=== PATIENT | male | born 1950 | race Caucasian/White ===

== ENCOUNTER 2016-09-15 19:33 | Observation (INO) | payer OTHER ==
[~2016-09-15] VITALS: Ht 172.7 cm; Wt 81.5 kg
[~2016-09-15 19:33] MED LIST: ADVIL,NUPRIN,M200 MG PO; ASPIR 8181 M1 PO; COLACE100 MG PO; LOVASTATIN20 MG PO; MEDROL DOSEPAK4 MG PO; NOHOMEMEDS; OMEPRAZOLE40 M1 PO; PANTOPRAZOLE SO40 MG PO; PERCOCET 5/31 TABLET PO; PRILOSEC20 MG PO; PriLOSEC PO; SKELAXIN800 MG PO; prilosec
[2016-09-15 20:39] LABS: CHLORIDE 106 mEq/L (99-109); POTASSIUM 3.6 mEq/L (3.7-5.4); SODIUM 140 mEq/L (136-147)
[2016-09-15 20:41] LABS: GLUCOSE 118 mg/dL (70-99)
[2016-09-15 20:42] LABS: ANION GAP 14 MEQ/L (2-14)
[2016-09-15 20:43] LABS: TOTAL BILIRUBIN 0.8 mg/dL (0.0-1.0)
[2016-09-15 20:44] LABS: ALKALINE PHOSPHATASE 69 IU/L (3-129)
[2016-09-15 20:45] LABS: GFR ESTIMATE (CALCULATED) > 59 mL/min/
[2016-09-15 20:47] LABS: D-DIMER ELISA 0.64 mg/L FEU (< 0.57)
[2016-09-15 20:51] LABS: TROP-I INTERPRETATION NEGATIVE; TROPONIN-I < 0.01 ng/mL (0.0-0.30)
[2016-09-15 20:58] LABS: BASOPHIL COUNT 0.1 K/uL (0-0.1); EOSINOPHIL (%) 1.4 % (0-5); EOSINOPHIL COUNT 0.2 K/uL (0-0.3); HEMATOCRIT 53.6 % (38.0-50.0); IMMATURE GRANULOCYTE (%) 0.3 % (0.0-0.7); INSTRUMENT ABS NEUTROPHIL CT 8.7 K/uL; LYMPHOCYTE COUNT 1.7 K/uL (1.0-2.8); MCHC 34.5 G/DL (30.0-36.0); MCV 81.1 FL (86-99); MEAN PLAT.VOLUME 9.8 uM^3 (9.0-12.4); MONOCYTE (%) 9.1 % (3-12); MONOCYTE COUNT 1.1 K/uL (0-0.8); NEUTROPHIL (%) 74.4 % (45-76); NEUTROPHIL COUNT 8.7 K/uL (1.8-6.4); PLATELET COUNT 227 K/uL (156-360); RBC DIS.WIDTH-CV 13.2 % (11.8-14.6); RBC DIS.WIDTH-SD 37.9 % (39-53); RED BLOOD COUNT 6.61 M/uL (4.00-5.50)
[2016-09-15 21:14] LABS: WHITE BLOOD COUNT 11.7 K/uL (4.1-10.2)
[2016-09-15 21:32] LABS: UREA NITROGEN (BUN) 20 mg/dL (9-23)
[2016-09-15 21:42] LABS: ADD MIUA? NO; BILIRUBIN NEGATIVE; BLOOD NEGATIVE; COLOR YELLOW ((YELLOW)); GLUCOSE (STRIP) NEGATIVE; KETONES 80; LEUKOCYTES NEGATIVE; NITRITE NEGATIVE; PROTEIN (STRIP) 30; SPECIFIC GRAVITY 1.027 (1.000-1.030); UCUL ADDED? NO
[2016-09-15 22:01] LABS: INFLUENZA A VIRAL ANTIGEN NEGATIVE; INFLUENZA B VIRAL ANTIGEN NEGATIVE
[2016-09-15] MEDS ORDERED: GABAPENTIN600 MG PO (22:52)
[2016-09-15 23:17] VITALS: BP 156/94
[2016-09-16 04:00] VITALS: BP 118/80
[2016-09-16 07:17] VITALS: BP 133/82
[2016-09-16 09:28] LABS: HEMATOCRIT 49.4 % (38.0-50.0); MCH 27.8 PG (29.0-34.0); MCHC 33.4 G/DL (30.0-36.0); MCV 83.3 FL (86-99); MEAN PLAT.VOLUME 9.6 uM^3 (9.0-12.4); PLATELET COUNT 199 K/uL (156-360); RBC DIS.WIDTH-CV 13.1 % (11.8-14.6); RBC DIS.WIDTH-SD 40.3 % (39-53); RED BLOOD COUNT 5.93 M/uL (4.00-5.50)
[2016-09-16 09:32] LABS: WHITE BLOOD COUNT 7.1 K/uL (4.1-10.2)
[2016-09-16 09:46] LABS: ANION GAP 10 MEQ/L (2-14); CHLORIDE 108 MEQ/L (99-109); GFR ESTIMATE (CALCULATED) > 59 mL/min/; GLUCOSE 118 mg/dL (70-99); POTASSIUM 4.3 MEQ/L (3.7-5.4); SAMPLE HEMOLYSIS CHECK 0; SAMPLE ICTERIC CHECK 0; SAMPLE LIPEMIA CHECK 0; SODIUM 143 MEQ/L (136-147); UREA NITROGEN (BUN) 20 mg/dL (9-23)
[2016-09-16] MEDS ORDERED: GUAIFENESIN WI120 M1 PO (10:00)
[2016-09-16] MEDS ORDERED: SPIRIVA RESPIMAT4 GM IH (10:00)
[2016-09-16] MEDS ORDERED: ZITHROMAX TRI-500 MG PO (10:00)
[2016-09-16] MEDS ORDERED: ADVAIR HFA120 INHALA IH (10:00)
[2016-09-16] MEDS ORDERED: VENTOLIN HFA18 GM IH (10:00)
[2016-09-16] MEDS ORDERED: PREDNISONE20 MG PO (10:00)
[2016-09-16 11:34] VITALS: BP 133/86
== END 2016-09-16 12:54 | disposition home or self-care (01) ==
LOC: EME 19:33 → EDOF 22:06 → 5WEST 22:06 → EDOF 22:58 → 5WEST 23:05
PROVIDERS: Emergency Medicine; Hospitalist
DX: J44.1 Chronic obstructive pulmonary disease with (acute) exacerbation (principal); J44.0 Chronic obstructive pulmonary disease with (acute) lower respiratory infection; J20.9 Acute bronchitis, unspecified; J45.901 Unspecified asthma with (acute) exacerbation; Z87.891 Personal history of nicotine dependence; K21.9 Gastro-esophageal reflux disease without esophagitis; G43.909 Migraine, unspecified, not intractable, without status migrainosus; F12.90 Cannabis use, unspecified, uncomplicated
CPT/HCPCS: 71020; 71250; 78582; 80048; 80053; 81003; 84484; 85025; 85027; 85379; 87502; 93005; 94640; 94640 76; 99202; 99281; 99285; A9540; A9567; G0378; J1650; J1885; J3010; J3480; J7030; J7512

== ENCOUNTER 2016-11-08 10:20 | Emergency (ER) | payer OTHER ==
[~2016-11-08] VITALS: Ht 172.7 cm; Wt 80.8 kg
[~2016-11-08 10:20] MED LIST changes: +ADVAIR HFA120 INHALA IH; +GABAPENTIN600 MG PO; +GUAIFENESIN WI120 M1 PO; +PREDNISONE20 MG PO; +SPIRIVA RESPIMAT4 GM IH; +VENTOLIN HFA18 GM IH; +ZITHROMAX TRI-500 MG PO
[2016-11-08 10:59] LABS: MCH 27.9 PG (29.0-34.0); MCHC 34.2 G/DL (30.0-36.0); MCV 81.6 FL (86-99); MEAN PLAT.VOLUME 9.8 uM^3 (9.0-12.4); PLATELET COUNT 202 K/uL (156-360); RBC DIS.WIDTH-CV 13.6 % (11.8-14.6); RBC DIS.WIDTH-SD 39.8 % (39-53); RED BLOOD COUNT 6.37 M/uL (4.00-5.50)
[2016-11-08 11:07] LABS: CHLORIDE 103 mEq/L (99-109); POTASSIUM 3.8 mEq/L (3.7-5.4); SODIUM 139 mEq/L (136-147)
[2016-11-08 11:09] LABS: GLUCOSE 114 mg/dL (70-99)
[2016-11-08 11:11] LABS: ANION GAP 11 MEQ/L (2-14); TOTAL BILIRUBIN 1.1 mg/dL (0.0-1.0)
[2016-11-08 11:13] LABS: ALKALINE PHOSPHATASE 72 IU/L (3-129); GFR ESTIMATE (CALCULATED) > 59 mL/min/
[2016-11-08 11:14] LABS: UREA NITROGEN (BUN) 19 mg/dL (9-23)
[2016-11-08 11:16] LABS: LIPASE 11 U/L (1.0-51.0)
[2016-11-08 12:52] LABS: TROP-I INTERPRETATION NEGATIVE; TROPONIN-I < 0.01 ng/mL (0.0-0.30)
[2016-11-08 12:54] LABS: ADD MIUA? NO; BILIRUBIN NEGATIVE; BLOOD NEGATIVE; COLOR YELLOW ((YELLOW)); GLUCOSE (STRIP) NEGATIVE; KETONES 20; LEUKOCYTES NEGATIVE; NITRITE NEGATIVE; PROTEIN (STRIP) 30; UCUL ADDED? NO; UROBILINOGEN 0.2 MG/DL (0.2-1.0)
[2016-11-08] MEDS ORDERED: BENTYL10 MG PO (14:34)
[2016-11-08] MEDS ORDERED: ZOFRAN ODT4 MG PO (14:34)
[2016-11-08 15:02] VITALS: BP 115/96
== END 2016-11-08 15:03 | disposition home or self-care (01) ==
LOC: EME 10:20
DX: R10.84 Generalized abdominal pain (principal); R11.2 Nausea with vomiting, unspecified; K76.0 Fatty (change of) liver, not elsewhere classified; N28.1 Cyst of kidney, acquired; J44.9 Chronic obstructive pulmonary disease, unspecified; K21.9 Gastro-esophageal reflux disease without esophagitis; Z85.819 Personal history of malignant neoplasm of unspecified site of lip, oral cavity, and pharynx; Z87.442 Personal history of urinary calculi; Z87.891 Personal history of nicotine dependence
CPT/HCPCS: 71020; 74176; 80053; 81003; 83690; 84484; 85027; 93005; 99281; 99284; J1885; J7030

== ENCOUNTER 2017-08-27 12:01 | Emergency (ER) | payer OTHER ==
[~2017-08-27] VITALS: Ht 172.7 cm; Wt 85.5 kg
[~2017-08-27 12:01] MED LIST changes: +BENTYL10 MG PO; +ZOFRAN ODT4 MG PO
[2017-08-27 14:37] LABS: APPEARANCE CLEAR ((CLEAR)); BILIRUBIN NEGATIVE; BLOOD NEGATIVE; COLOR YELLOW ((YELLOW)); GLUCOSE (STRIP) NEGATIVE; KETONES NEGATIVE; LEUKOCYTES NEGATIVE; NITRITE NEGATIVE; PROTEIN (STRIP) 30; SPECIFIC GRAVITY 1.053 (1.000-1.030); UROBILINOGEN 0.2 MG/DL (0.2-1.0)
[2017-08-27 14:50] LABS: HEMATOCRIT 48.9 % (38.0-50.0); HEMOGLOBIN 16.8 G/DL (12.5-16.6); MCH 28.8 PG (29.0-34.0); MCHC 34.4 G/DL (30.0-36.0); MCV 83.9 FL (86-99); PLATELET COUNT 187 K/uL (156-360); RBC DIS.WIDTH-CV 13.4 % (11.8-14.6); RBC DIS.WIDTH-SD 41.1 % (39-53); RED BLOOD COUNT 5.83 M/uL (4.00-5.50); WHITE BLOOD COUNT 9.1 K/uL (4.1-10.2)
[2017-08-27 14:58] LABS: ALBUMIN 4.1 g/dL (3.2-4.8)
[2017-08-27 14:59] LABS: CHLORIDE 105 mEq/L (99-109); POTASSIUM 4.5 mEq/L (3.7-5.4); SODIUM 142 mEq/L (136-147)
[2017-08-27 15:01] LABS: GLUCOSE 78 mg/dL (70-99); TOTAL PROTEIN 6.9 g/dL (6.4-8.3)
[2017-08-27 15:03] LABS: TOTAL BILIRUBIN 0.8 mg/dL (0.0-1.0)
[2017-08-27 15:04] LABS: ALKALINE PHOSPHATASE 69 IU/L (3-129)
[2017-08-27 15:05] LABS: CREATININE 1.2 mg/dL (0.6-1.3); GFR ESTIMATE (CALCULATED) > 59 mL/min/ (58.99-99999)
[2017-08-27 15:06] LABS: AST (GOT) 20 IU/L (2-34); UREA NITROGEN (BUN) 17 mg/dL (9-23)
[2017-08-27 15:07] LABS: ALT (GPT) 25 IU/L (3-49)
[2017-08-27 15:08] LABS: LIPASE 21 U/L (1.0-51.0)
[2017-08-27] MEDS ORDERED: NAPROSYN500 MG PO (15:34)
[2017-08-27 15:55] VITALS: BP 155/85
== END 2017-08-27 15:55 | disposition home or self-care (01) ==
LOC: EME 12:01
PROVIDERS: Nurse Practitioner Family
DX: R10.31 Right lower quadrant pain (principal); N40.0 Benign prostatic hyperplasia without lower urinary tract symptoms; N28.1 Cyst of kidney, acquired; Z87.442 Personal history of urinary calculi; Z85.818 Personal history of malignant neoplasm of other sites of lip, oral cavity, and pharynx; Z91.041 Radiographic dye allergy status; Z87.891 Personal history of nicotine dependence
CPT/HCPCS: 74177; 80053; 81003; 83605; 83690; 85027; 99281; 99285; J1885; J7030